=== PATIENT | male | born 1950 | race Caucasian/White ===

== ENCOUNTER 2017-08-29 16:34 | Emergency (ER) | payer OTHER, BC ==
[~2017-08-29] VITALS: Ht 182.9 cm; Wt 85.9 kg
[~2017-08-29 16:34] MED LIST: ALPRAZOLAM0.25 M2 PO; ASPIR 8181 M1 PO; ASPIR-MOX 325325 M1; CENTRUM SILVER1 EAC3 PO; CENTRUM SILVER1 EACH; CIMETIDINE400 MG PO; CLARITIN,ALAVAR10 MG PO; CLARITIN10 M3 PO; CLOPIDOGREL75 MG PO; COMBIVENT RESPIM4 GM IH; Cipro PO; DIOVAN HCT 11 TABLET PO; DIOVAN HCT 1601 EACH; DOXYCYCLINE HY100 MG PO; DUONEB 2.5-0.5 M3 ML AEROSOL; FINASTERIDE5 MG PO; FLOMAX0.4 MG PO; FOLIC ACID0.8 MG PO; FOLIC ACID1 MG PO; FOLVITE1 MG PO; FUROSEMIDE20 MG PO; Flomax PO; Folic Acid PO; GLUCOPHAGE500 MG PO; KEFLEX500 MG PO; LASIX20 MG PO; LEVAQUIN500 MG PO; LO-DOSE ASPIRIN81 M1 PO; LOVAZA1 GM PO; METFORMIN HCL500 MG; METFORMIN HCL500 MG PO; METOPROLOL SUC100 MG PO; Micro-K,K-Tab,K-Dur, PO; PERCOCET 5/31 TABLET PO; POTASSIUM GLUCO99 M1 PO; POTASSIUM GLUCO99 MG PO; PRAVACHOL20 MG PO; PRAVASTATIN SOD20 MG PO; PROTONIX40 MG PO; SIMCOR 500-201 EACH PO; SINGULAIR10 MG PO; SYMBICORT60 INHALAT IH; TAGAMET400 MG PO; TAMSULOSIN HCL0.4 MG PO; TOPROL XL100 MG PO; TOPROL XL50 MG PO; Toprol XL PO; VALSARTAN-HCTZ1 EAC1 PO; VICODIN 5-3001 EACH PO; XANAX0.25 MG PO; Xanax PO; ZOFRAN4 MG PO
[2017-08-29] MEDS ORDERED: MOTRIN600 MG PO (21:21)
[2017-08-29 21:45] VITALS: BP 131/70
== END 2017-08-29 22:14 | disposition home or self-care (01) ==
LOC: EME 16:34
DX: S42.91XA Fracture of right shoulder girdle, part unspecified, initial encounter for closed fracture (principal); S70.01XA Contusion of right hip, initial encounter; S40.011A Contusion of right shoulder, initial encounter; W11.XXXA Fall on and from ladder, initial encounter; I11.0 Hypertensive heart disease with heart failure; I50.9 Heart failure, unspecified; E11.9 Type 2 diabetes mellitus without complications; Z79.84 Long term (current) use of oral hypoglycemic drugs; F41.9 Anxiety disorder, unspecified; J44.9 Chronic obstructive pulmonary disease, unspecified; Z86.73 Personal history of transient ischemic attack (TIA), and cerebral infarction without residual deficits; Z85.828 Personal history of other malignant neoplasm of skin; Z87.891 Personal history of nicotine dependence
CPT/HCPCS: 70450; 72070; 72125; 73010; 73030; 73502; 73700; 99281; 99285

== ENCOUNTER 2018-01-07 19:14 | Observation (INO) | payer OTHER, BC ==
[~2018-01-07] VITALS: Ht 180.3 cm; Wt 102.8 kg
[~2018-01-07 19:14] MED LIST changes: +MOTRIN600 MG PO; -TOPROL XL100 MG PO; +TOPROL XL200 MG PO
[2018-01-07 19:58] LABS: HEMATOCRIT 40.5 % (38.0-50.0); HEMOGLOBIN 14.6 G/DL (12.5-16.6); MCH 31.5 PG (29.0-34.0); MCV 87.5 FL (86-99); PLATELET COUNT 182 K/uL (156-360); RBC DIS.WIDTH-SD 41.4 % (39-53); RED BLOOD COUNT 4.63 M/uL (4.00-5.50); WHITE BLOOD COUNT 10.1 K/uL (4.1-10.2)
[2018-01-07 20:03] LABS: INTER. NORMALIZED RATIO 1.1
[2018-01-07 20:05] LABS: D-DIMER ELISA < 150.00 ng/mLDDU (<230); PTT 25.9 SEC (25-37)
[2018-01-07 20:07] LABS: ALBUMIN 3.9 g/dL (3.2-4.8); CHLORIDE 104 mEq/L (99-109); POTASSIUM 3.3 mEq/L (3.7-5.4); SODIUM 136 mEq/L (136-147)
[2018-01-07 20:10] LABS: GLUCOSE 345 mg/dL (70-99)
[2018-01-07 20:12] LABS: TOTAL BILIRUBIN 0.4 mg/dL (0.0-1.0)
[2018-01-07 20:13] LABS: ALKALINE PHOSPHATASE 133 IU/L (3-129); CREATININE 1.4 mg/dL (0.6-1.3); GFR ESTIMATE (CALCULATED) 53 mL/min/ (58.99-99999)
[2018-01-07 20:14] LABS: UREA NITROGEN (BUN) 18 mg/dL (9-23)
[2018-01-07 20:15] LABS: AST (GOT) 20 IU/L (2-34)
[2018-01-07 20:16] LABS: ALT (GPT) 21 IU/L (3-49)
[2018-01-07 20:22] LABS: TROP-I INTERPRETATION NEGATIVE; TROPONIN-I < 0.01 ng/mL (0.0-0.30)
[2018-01-07 23:07] LABS: TROP-I INTERPRETATION NEGATIVE; TROPONIN-I 0.02 ng/mL (0.0-0.30)
[2018-01-07] MEDS ORDERED: LIPITOR20 MG PO (23:53)
[2018-01-07] MEDS ORDERED: LOSARTAN-HCTZ1 EACH PO (23:54)
[2018-01-07] MEDS ORDERED: ADVIL,NUPRIN,M200 MG PO (23:54)
[2018-01-07] MEDS ORDERED: MIRTAZAPINE15 MG PO (23:55)
[2018-01-07] MEDS ORDERED: NAMENDA10 MG PO (23:56)
[2018-01-07] MEDS ORDERED: LEXAPRO20 MG PO (23:56)
[2018-01-08 02:13] VITALS: BP 109/58
[2018-01-08 03:44] VITALS: BP 108/55
[2018-01-08 07:01] LABS: TROP-I INTERPRETATION NEGATIVE; TROPONIN-I 0.01 ng/mL (0.0-0.30)
[2018-01-08 07:33] VITALS: BP 111/66
[2018-01-08 10:59] VITALS: BP 127/71
[2018-01-08 11:55] VITALS: BP 125/57
[2018-01-08 14:17] LABS: TROP-I INTERPRETATION NEGATIVE; TROPONIN-I < 0.01 ng/mL (0.0-0.30)
[2018-01-08 16:37] VITALS: BP 137/77
== END 2018-01-08 21:19 | disposition home or self-care (01) ==
LOC: EME 19:14 → EDOF 23:44 → 5WEST 23:44 → EDOF 23:44 → ENRESERV 23:45 → CANRESERV 23:56 → ENRESERV 23:56 → 5WEST 01-08 01:45
PROVIDERS: Emergency Medicine Emergency Medical Services; Family Medicine
DX: R07.9 Chest pain, unspecified (principal); R06.09 Other forms of dyspnea; R42 Dizziness and giddiness; E66.9 Obesity, unspecified; E11.9 Type 2 diabetes mellitus without complications; I10 Essential (primary) hypertension; J44.9 Chronic obstructive pulmonary disease, unspecified; N40.0 Benign prostatic hyperplasia without lower urinary tract symptoms; Z87.891 Personal history of nicotine dependence; I51.7 Cardiomegaly; K21.9 Gastro-esophageal reflux disease without esophagitis; Z90.49 Acquired absence of other specified parts of digestive tract; Z85.828 Personal history of other malignant neoplasm of skin; F41.9 Anxiety disorder, unspecified; Z86.73 Personal history of transient ischemic attack (TIA), and cerebral infarction without residual deficits; Z79.82 Long term (current) use of aspirin; Z79.84 Long term (current) use of oral hypoglycemic drugs; Z87.442 Personal history of urinary calculi; Z88.1 Allergy status to other antibiotic agents; Z91.040 Latex allergy status
CPT/HCPCS: 71046; 80053; 83880; 84484; 85027; 85379; 85610; 85730; 93005; 99281; 99285; G0378; J1940